=== PATIENT | male | born 1970 | race Caucasian/White ===

== ENCOUNTER → 2017-11-06 14:01 | Outpatient (CLI) | payer OTHER, SELFPAY ==
--- NOTE | 2017-11-06 | DI.US.S_ITS ---
PROCEDURE: US RENAL COMPLETE INDICATIONS: KIDNEY STONE TECHNIQUE: Real-time scanning was performed of the kidneys and bladder, with image documentation. COMPARISON: None. FINDINGS: Kidneys: Kidneys are normal in size. Right kidney measures 10.5 cm long; left kidney measures 10.7 cm long. Right renal cortical thickness is 1.8 cm; left renal cortical thickness is 1.9 cm. Renal cortical echotexture is normal. No hydronephrosis or nephrolithiasis. No suspicious solid mass lesions. Bladder: Pre-void bladder volume is 216 mL. Post-void residual was not obtained. Pre-void images demonstrate no intraluminal masses or stones. On pre-void images, both ureteral jets are noted with color Doppler interrogation. (Of note, ureteral jets may not be detectable in up to 25% of cases due to insufficient differences in specific gravity between ureteral and bladder urine). Miscellaneous: No free pelvic fluid. IMPRESSION: 1. No kidney stones are identified. No hydronephrosis. Dictated by: Enzo Story M.D. on 11/06/2017 at 14:34 Approved by: Enzo Story M.D. on 11/06/2017 at 14:36
== END ==
PROVIDERS: Family Provider Family Medicine; PCP Family Medicine; Visit Provider Podiatrist Foot & Ankle Surgery
DX: N20.0 Calculus of kidney (principal)
CPT/HCPCS: 76770

== ENCOUNTER → 2018-12-18 14:09 | Outpatient (CLI) | payer OTHER, SELFPAY | PROVIDERS: Family Provider Family Medicine; PCP Family Medicine; Visit Provider Physician Assistant | DX: B97.89 Other viral agents as the cause of diseases classified elsewhere (principal); J06.9 Acute upper respiratory infection, unspecified | CPT/HCPCS: 87070 ==

== ENCOUNTER → 2019-08-26 18:59 | Outpatient (CLI) | payer OTHER, SELFPAY ==
--- NOTE | 2019-08-26 | DI.MRI.S_ITS ---
PROCEDURE: MR FOOT RT WO CON INDICATIONS: Other enthesopathy of right foot and ankle TECHNIQUE: Noncontrast sagittal T1 spin echo and T2 fast spin echo with fat saturation, long-axis T1 spin echo and T2 fast spin echo with fat saturation, short-axis T1 spin echo and T2 fast spin echo with fat saturation through the forefoot. COMPARISON: [facility] [place], CR, XR FOOT 3 VIEWS WEIGHT BEARING RIGHT, 04/25/2019, 13:57. FINDINGS: Image quality: Diagnostic. Bones and joints: No acute fracture, dislocation, or suspicious osseous lesion is identified involving the osseous structures of the midfoot or forefoot. There mild/early degenerative changes noted involving the 1st and 2nd metatarsophalangeal joints. There is no hallux valgus. Small joint effusions are noted involving the 1st, 2nd, and 3rd metatarsophalangeal joints. Soft tissues: The soft tissues of the midfoot and forefoot are within normal limits. No soft tissue masses or drainable fluid collections are identified. No significant atrophy involving the intrinsic muscles of the foot are appreciated. A small amount of fluid is identified between the 1st and 2nd metatarsal heads. The flexor and extensor tendons of the foot are within normal limits. The Lisfranc ligaments is not adequately seen, but appears to be intact. IMPRESSION: 1. Mild/early degenerative changes of the forefoot. 2. Small joint effusions involving the 1st through 3rd metatarsophalangeal joints. 3. Minimal fluid between the 1st and 2nd metatarsal heads may represent intermetatarsal bursitis. Dictated by: Tito Lemus M.D. on 08/27/2019 at 8:26 Approved by: Tito Lemus M.D. on 08/27/2019 at 8:32
== END ==
PROVIDERS: Family Provider Family Medicine; PCP Family Medicine; Referring Provider Orthopaedic Surgery Foot and Ankle Surgery; Visit Provider Orthopaedic Surgery Foot and Ankle Surgery
DX: M77.51 Other enthesopathy of right foot and ankle (principal); M25.474 Effusion, right foot
CPT/HCPCS: 73718

== ENCOUNTER → 2020-07-14 11:09 | Outpatient (CLI) | payer OTHER, SELFPAY ==
[2020-07-14 11:38] LABS: Add Manual Diff / Slide Review NO; Basophils Absolute Auto 0 /uL (0-100); Basophils Percent Auto 0.7 % (0-2); Eosinophils Absolute Auto 100 /uL (0-450); Eosinophils Percent Auto 2.3 % (2-4); Hematocrit 44.2 % (41-53); Lymphocytes Absolute Auto 1400 /uL (1100-4500); Mean Corpuscular HGB Conc 33.9 % (30-36); Mean Corpuscular Hemoglobin 30.8 PG (26-34); Mean Corpuscular Volume 91.1 fL (80-100); Monocytes Absolute Auto 300 /uL (0-900); Monocytes Percent Auto 7.1 % (3-14); Neutrophils Absolute Auto 2000 /uL (1500-7000); Neutrophils Percent Auto 52.9 % (50-75); Platelet Count 194 X10^3/uL (150-400); Red Blood Cell Count 4.85 X10^6/uL (4.5-5.9); White Blood Cell Count 3.7 X10^3/uL (4.5-11.0)
[2020-07-14 11:54] LABS: Alanine Aminotransferase 21 IU/L (<50); Albumin 4.5 g/dL (3.5-5.0); Albumin Globulin Ratio 1.3 (1.0-2.8); Alkaline Phosphatase 83 U/L (38-126); Aspartate Aminotransferase 35 IU/L (17-59); BUN Creatinine Ratio 12.5 (6-22); Bilirubin Total 0.4 mg/dL (0.2-1.3); Blood Urea Nitrogen 12 mg/dL (9-20); Calcium 9.6 mg/dL (8.4-10.2); Carbon Dioxide 33 mmol/L (22-32); Chloride 102 mmol/L (98-107); Cholesterol 262 mg/dL (140-199); Estimated Glomerular Filt Rate > 60.0 mL/min (>60); Globulin 3.5 g/dL (1.7-4.1); Glucose 103 mg/dL (70-100); HDL Cholesterol 83 mg/dL (40-60); HEMOLYSIS < 15 (0-50); LDL Cholesterol Calculated 157 mg/dL (<100); Potassium 4.1 mmol/L (3.4-5.1); Sodium 136 mmol/L (137-145); Triglycerides 108 mg/dL (35-150)
[2020-07-14 12:24] LABS: Vitamin D 25 Hydroxy (D3) 28.8 ng/mL (30.0-100.0)
== END ==
PROVIDERS: Family Provider Family Medicine; PCP Student in an Organized Health Care Education/Training Program; Referring Provider Student in an Organized Health Care Education/Training Program; Visit Provider Student in an Organized Health Care Education/Training Program
DX: F10.10 Alcohol abuse, uncomplicated (principal); I10 Essential (primary) hypertension; Z13.220 Encounter for screening for lipoid disorders; Z84.1 Family history of disorders of kidney and ureter; E55.9 Vitamin D deficiency, unspecified
CPT/HCPCS: 36415; 80053; 80061; 82306; 85025